=== PATIENT | male | born 1985 | race Caucasian/White ===

== ENCOUNTER 2024-07-14 04:55 | Emergency (ER) | payer BC, SELFPAY ==
--- NOTE | ~2024-07-14 | CT_ITS ---
EXAMINATION: CT ABDOMEN AND PELVIS WITHOUT CONTRAST CLINICAL INFORMATION: Abdominal pain COMPARISON: Abdominal pain 08/30/2019. TECHNIQUE: Multidetector volumetric imaging was performed from the superior aspect of the liver through the pubic symphysis. Sagittal and coronal reformatted images were obtained on the technologist's workstation. This CT examination was performed using dose optimization techniques as appropriate, variously including the following: *Automated exposure control *Adjustment of mA and/or kV according to patient size (this includes techniques or standardized protocols for targeted exams where dose is matched to indication/reason for exam; i.e. extremities or head) *Use of iterative reconstruction technique DLP: 1146 mGy-cm FINDINGS: LUNG BASES: The visualized lung bases are unremarkable. LIVER, GALLBLADDER, AND BILIARY TREE: The liver is normal in size, shape, and attenuation. No focal hepatic lesion or biliary ductal dilatation is present. The gallbladder is unremarkable with no evidence of radiopaque gallstones, gallbladder wall thickening, or obvious pericholecystic inflammatory changes. PANCREAS: Unremarkable. SPLEEN: Unremarkable. ADRENAL GLANDS: Unremarkable. KIDNEYS AND URETERS: Right kidney and collecting system: 2 mm x 2 mm calculus within the proximal right ureter 17 cm deep to the right posterior axillary line at the level of L3-L4 is findings associated with moderate proximal ureterectasis and moderate right-sided hydronephrosis with moderate right perinephric inflammatory changes no perinephric fluid collections. Three punctate (1 mm) calculi are identified within the right renal pelvis. A 4 mm rounded exophytic focus associated with the superior pole right kidney and is too small to specifically characterize but is most suspicious for a benign, simple cyst on the basis of this examination warrants no additional imaging follow-up Left kidney: No hydronephrosis or nephrolithiasis. No ureterectasis. BLADDER: Unremarkable. GASTROINTESTINAL TRACT: The small and large bowel are unremarkable. The appendix is unremarkable. ABDOMINAL WALL: Periumbilical hernia measuring 1 cm in diameter containing omental fat without associated inflammatory changes. LYMPH NODES: Normal. VASCULAR: Unremarkable. PELVIC VISCERA: Unremarkable. OSSEOUS STRUCTURES: Partial visualization of a mild posterior broad-based disc-osteophyte complex L5-S1. CT/CT abdomen pelvis wo IV con IMPRESSION: 1. Obstructing right-sided ureteral calculus. Single 2 mm x 2 mm calculus within the proximal right ureter at the level of L3-L4 associated with moderate right-sided hydronephrosis and moderate right perinephric inflammatory changes. 2. Three punctate (1 mm) nonobstructing calculi within the right renal pelvis. 3. Partial visualization of a mild posterior broad-based disc-osteophyte complex L5-S1. Electronically signed by: Mauricio Shaw MD 07/14/2024 07:42 AM EDT
--- OUTSIDE RECORDS SUMMARY | 2024-07-14 06:04 | XMS_ITS ---
Author Organization [facility] Janelle Suarezley Address [address] [place] [address] Care Team Providers Care Electric Tool Repairer Name Role Phone Armando Maribel BEAL Primary Care Provider Unavail able Annmarie Villarreal Unavailable [phone] REASON FOR VISIT Cx 07/10/23 apt Encounters Encounter Location Date Provider Diagnosis [facility] [address] [place] [address] 07/08/2023 Annmarie Villarreal PLAN OF TREATMENT No Information
--- OUTSIDE RECORDS SUMMARY | 2024-07-14 06:04 | XMS_ITS ---
Author Organization [facility] Janelle [facility] Address [address] [place] [address] Care Team Providers Care House Superintendent Name Role Phone Armando Maribel BEAL Primary Care Provider Unavail able Annmarie Villarreal Unavailable [phone] Encounters Encounter Location Date Provider Diagnosis [facility] [address] [place] [address] 07/10/2023 Annmarie Villarreal PLAN OF TREATMENT No Information
--- OUTSIDE RECORDS SUMMARY | 2024-07-14 06:04 | XMS_ITS | Patient Health Record ---
Author Organization [facility] Janelle Ortega Address [address] [place] [address] Care Team Providers Care Certified Orthotist Name Role Phone Armando Maribel BEAL Primary Care Provider Unavail able Annmarie Villarreal Unavailable [phone] REASON FOR REFERRAL No Information PLAN OF TREATMENT No Information Insurance Providers Payer Name Payer Address Payer Phone Subscriber Number Group Number Insured Name Patient Relationship to Insured Coverage Start Date Coverage End Date [facility] [employer] [address] [place] [address] [phone] [id number] Mayo Ramos Self - patient is the insured
[2024-07-14 06:19] LABS: MANUAL DIFF FLAG NO
[2024-07-14 06:21] LABS: Basophils Absolute Auto 0.1 X10*3/uL (0.0-0.2); Basophils Percent Auto 0.6 % (0-2); Eosinophils Absolute Auto 0.1 X10*3/uL (0.0-0.4); Eosinophils Percent Auto 0.6 % (0-4); Hematocrit 40.7 % (42.0-52.0); Hemoglobin 13.9 g/dl (14.0-18.0); Imm Gran Abs Auto 0.08 X10*3/uL (0.00-0.03); Imm Gran Pct Auto 0.6 % (0.0-0.4); Lymphocytes Absolute Auto 1.6 X10*3/uL (1.2-4.9); Mean Corpuscular HGB Conc 34.2 g/dl (31.0-36.0); Mean Corpuscular Hemoglobin 30.4 pg (27.0-33.0); Mean Corpuscular Volume 89.1 fL (80.0-98.0); Mean Platelet Volume 9.5 fL (9.4-12.4); Monocytes Absolute Auto 0.9 X10*3/uL (0.1-1.2); Monocytes Percent Auto 6.6 % (2-11); Neutrophils Absolute Auto 10.7 x10*3/uL (2.0-8.3); Neutrophils Percent Auto 79.6 % (45-73); Platelet Count 241 X10*3/uL (160-400); Red Blood Count 4.57 X10*6/uL (4.60-5.80); Red Cell Distribution Width 12.5 % (11.0-16.0); White Blood Count 13.4 X10*3/uL (4.8-10.8)
[2024-07-14 06:29] LABS: Alanine Aminotransferase 31 U/L (0-40); Albumin Level 4.6 g/dL (3.5-5.0); Alkaline Phosphatase 78 U/L (39-117); Anion Gap 17 (12-20); Aspartate Amino Transferase 25 U/L (5-37); Bilirubin Total 1.3 mg/dL (0.0-1.0); Blood Urea Nitrogen 17 mg/dL (9-16); Calcium 9.8 mg/dL (8.4-10.2); Carbon Dioxide 21 mmol/L (22-29); Chloride 106 mmol/L (96-108); Estimated Glomerular Filt Rate > 60; Glucose Random 132 mg/dL (60-115); Potassium 3.8 mmol/L (3.3-5.1); Sodium 140 mmol/L (135-145); Total Protein 7.9 g/dL (6.5-8.0)
[2024-07-14 06:37] VITALS: BP 131/72; PULSE 59; RESP 16; TEMP 36.6; O2SAT 95
--- NOTE | 2024-07-14 08:00 | PC.NURSE ---
Pt previously medicated for pain, asleep on stretcher with respirations equal and unlabored. IVF bolus complete. Pt ambulatory to the BR to provide urine sample at this time with a steady gait.
--- NOTE | 2024-07-14 08:26 | W.ED.CONS.HO ---
Consult Details Consult Details: I took over care from Dr. Santiago who did a paper chart during downtime. CT shows 2 mm stone with hydronephrosis and perinephric stranding pain controlled at this time still pending UA.
[2024-07-14 08:48] VITALS: BP 144/75; PULSE 60; RESP 16; TEMP 36.8; O2SAT 99
[2024-07-14 08:52] LABS: Appearance Urine Clear; Color Urine Yellow; Glucose Urine UA Negative (Negative); Leukocyte Esterase Urine Trace (Negative); Nitrite Urine Negative (Negative); PH 5.5 (5.0-9.0); Specific Gravity - Urine 1.025 (1.005-1.025); UMIC TRIGGER UACC YES; Urine Blood Large (3+) (Negative); Urine Ketones 15 mg/dL (Negative); Urine Protein Trace mg/dL (Neg-Trace)
[2024-07-14 08:54] LABS: Bacteria Urine None Seen (None Seen); RBC Urine >20 /HPF (0-2); Squamous Epithelial Cell Urine 0-2 /HPF (0-2); WBC Urine 0-5 /HPF (0-5)
[2024-07-14] MEDS: Ibuprofen 400 MG TABLET PO (09:29)
[2024-07-14] MEDS: Morphine Sulfate 4 MG/ML CARTRIDGE IVPUSH (09:29)
[2024-07-14 10:01] VITALS: BP 144/75; PULSE 60; RESP 16; TEMP 36.8; O2SAT 99
== END 2024-07-14 10:02 | disposition home or self-care (01) ==
PROVIDERS: Emergency Medicine; Emergency Provider Student in an Organized Health Care Education/Training Program
DX: R10.9 Unspecified abdominal pain (principal); R10.2 Pelvic and perineal pain; Z79.899 Other long term (current) drug therapy
CPT/HCPCS: 36415; 74176; 80053; 81001; 85025; 96374; 96375; 99283; 99284; J2270